=== PATIENT | female | born 1955 | race African-American/Black ===

== ENCOUNTER 2018-06-30 15:44 | Emergency (ER) | payer OTHER ==
[~2018-06-30] VITALS: Ht 170.2 cm; Wt 100.0 kg
[2018-06-30 15:53] VITALS: BP 104/62
== END 2018-06-30 19:07 | disposition home or self-care (01) ==
LOC: ER 15:44
DX: J30.9 Allergic rhinitis, unspecified (principal); F41.9 Anxiety disorder, unspecified; R09.81 Nasal congestion; R07.89 Other chest pain; I10 Essential (primary) hypertension; Z90.710 Acquired absence of both cervix and uterus
CPT/HCPCS: 71045; 99283

== ENCOUNTER 2018-08-13 23:08 | Emergency (ER) | payer OTHER ==
[~2018-08-13] VITALS: Ht 170.2 cm; Wt 98.0 kg
[2018-08-14 00:20] VITALS: BP 161/63
== END 2018-08-14 02:30 | disposition left against medical advice (07) ==
LOC: ER 23:08
DX: Z53.21 Procedure and treatment not carried out due to patient leaving prior to being seen by health care provider (principal)

== ENCOUNTER 2019-07-02 19:52 | Emergency (ER) | payer OTHER ==
[~2019-07-02] VITALS: Ht 170.2 cm; Wt 102.0 kg
[2019-07-02 22:34] VITALS: BP 125/55
== END 2019-07-03 01:53 | disposition left against medical advice (07) ==
LOC: ER 19:52
DX: Z53.21 Procedure and treatment not carried out due to patient leaving prior to being seen by health care provider (principal); R42 Dizziness and giddiness
CPT/HCPCS: 93005